=== PATIENT | female | born 1980 | race Caucasian/White ===

== ENCOUNTER 2017-02-04 11:46 | Emergency (ER) | payer OTHER ==
[~2017-02-04] VITALS: Ht 172.7 cm; Wt 60.8 kg
[~2017-02-04 11:46] MED LIST: DOXEPIN PO; KEFLEX PO; PAXIL PO; SKELAXIN PO; VICODIN 5/500 T1 TAB PO; ZOFRAN PO; ZOLOFT PO
== END 2017-02-04 13:13 | disposition home or self-care (01) ==
LOC: CED 11:46
DX: S05.02XA Injury of conjunctiva and corneal abrasion without foreign body, left eye, initial encounter (principal); H11.32 Conjunctival hemorrhage, left eye; F17.200 Nicotine dependence, unspecified, uncomplicated; Z88.0 Allergy status to penicillin; X58.XXXA Exposure to other specified factors, initial encounter
CPT/HCPCS: 90471; 90715; 99283